=== PATIENT | male | born 1950 ===

== ENCOUNTER 2018-07-09 07:52 | Observation (INO) | payer OTHER ==
[2018-07-09] MEDS ORDERED: GABAPENTIN 300 MG CAP PO ONE (08:09)
[2018-07-09] MEDS ORDERED: ACETAMINOPHEN 500 MG TAB PO ONE (08:09)
[2018-07-09] MEDS ORDERED: ceFAZolin 2 GM/DEXTROSE 100 ML IV ONE (08:09)
[2018-07-09] MEDS ORDERED: LR 1,000 ML IV ONE (08:17)
[2018-07-09] MEDS ORDERED: EPINEPHrine 1 MG/ML INJ ONE (08:51)
[2018-07-09] MEDS ORDERED: CHLORHEXIDINE GLUC HIBICLENS 118 ML BTL TP ONE (08:51)
[2018-07-09] MEDS ORDERED: BUPIVACAINE 0.25% 30 ML SDV ONE (08:51)
[2018-07-09] MEDS ORDERED: THROMBIN (BOVINE) 5,000 UNIT VIAL TP ONE (08:51)
[2018-07-09] MEDS ORDERED: BACITRACIN 50,000 UNITS/10 ML SYR IRR ONE (08:52)
[2018-07-09] MEDS ORDERED: fentaNYL 100 MCG/2 ML INJ ONE ×4 (08:55→15:02)
[2018-07-09] MEDS ORDERED: fentaNYL 100 MCG/2 ML INJ IVP ONE (09:00)
[2018-07-09] MEDS ORDERED: ACETAMINOPHEN 325 MG TAB PO ONE (09:45)
[2018-07-09] MEDS ORDERED: GABAPENTIN 400 MG CAP PO ONE (09:45)
--- NOTE | 2018-07-09 10:44 | PDHPUP ---
History & Physical Update H&P update statement: This history and physical update is based on an assessment of the patient which was completed after admission or registration (within 24 hours), but prior to the surgery/procedure. H&P update: changes noted (worsened right buttock and leg pain )
--- NOTE | 2018-07-09 11:00 | PDANEPAE ---
ANE Past Medical History - Cardiovascular History Hx Hypertension: Yes Hx Arrhythmias: No Hx Chest Pain: No Hx Coronary Artery / Peripheral Vascular Disease: No Hx CHF / Valvular Disease: No Hx Palpitations: No - Pulmonary History Hx COPD: No Hx Asthma/Reactive Airway Disease: No Hx Recent Upper Respiratory Infection: No Hx Oxygen in Use at Home: No Hx Sleep Apnea: No Sleep Apnea Screening Result - Last Documented: Positive Pulmonary History Comment: SHARIFA Triggers only. seasonal allergies - Neurologic History Hx Cerebrovascular Accident: No Hx Seizures: No Hx Dementia: No Neurologic History Comment: right LE neuropathy. hx left tibial nerve paralysis resolved (r/t pneumo vaccine) - Endocrine History Hx Diabetes: No - Renal History Hx Renal Disorders: No - Liver History Hx Hepatic Disorders: No - Neurological & Psychiatric Hx Hx Neurological and Psychiatric Disorders: No - Cancer History Hx Cancer: No - Congenital Disorder History Hx Congenital Disorders: No - GI History Hx Gastrointestinal Disorders: No - Other Health History Other Health History: tinnitus - mild hearing loss right ear. allergic rhinitis. bruises easily. porokeratosis of the skin - Chronic Pain History Chronic Pain: Yes (back, right leg) - Surgical History Prior Surgeries: lumbar epidurals X2 2018. vasectomy & reversal. radal kerotatomy right eye. T&A. colonoscopies ANE Review of Systems Review of Systems: - Exercise capacity METS (RN): 4 METS ANE Patient History - Allergies Allergies/Adverse Reactions: pneumococcal vaccine [From Pneumovax 23] Allergy (Verified 06/30/18 11:03) paralysis of left tibial nerve - Home Medications Home Medications: Cetirizine [ZyrTEC 10 mg (*)] 10 mg PO DAILY 06/23/18 [Last Taken Unknown] Chlorthalidone [Chlorthalidone 25 mg (*)] 50 mg PO DAILY PRN 06/23/18 [Last Taken Unknown] Gabapentin [Neurontin 100 MG (*)] 100 mg PO TID 06/23/18 [Last Taken 07/09/18] HYDROcodone/APAP 10325 [[place] 10/325 (*)] 1 tab PO QID PRN 06/23/18 [Last Taken Unknown] amLODIPine BESYLATE [Norvasc 10 mg (*)] 10 mg PO DAILY 06/23/18 [Last Taken 01/21] Oxycodone HCl 07/09/18 [Last Taken 10/04/18] - NPO status NPO Since - Liquids (Date): 07/09/18 NPO Since - Liquids (Time): 06:00 NPO Since - Solids (Date): 07/08/18 NPO Since - Solids (Time): 18:00 - Smoking Hx Smoking Status: Never smoked - Family Anes Hx Family Hx Anesthesia Complications: none ANE Labs/Vital Signs - Vital Signs Blood Pressure: 131/91 Heart Rate: 64 Respiratory Rate: 16 O2 Sat (%): 98 Height: 180.34 cm Weight: 86.183 kg ANE Physical Exam - Airway Mallampati Score: Class 2 - ASA Status ASA Status: II ANE Anesthesia Plan Anesthesia Plan: general endotracheal anesthesia
[2018-07-09] MEDS ORDERED: MIDAZOLAM 2 MG/2 ML VIAL ONE (11:09)
[2018-07-09] MEDS ORDERED: ROCURONIUM 50 MG/5 ML VIAL ONE (11:10)
[2018-07-09] MEDS ORDERED: PROPOFOL/EMULSION 500 MG/50 ML BOTTLE IV ONE ×2 (11:10→12:43)
[2018-07-09] MEDS ORDERED: ONDANSETRON 4 MG/2 ML VIAL ONE (11:10)
[2018-07-09] MEDS ORDERED: METOCLOPRAMIDE 10 MG/2 ML VIAL ONE (11:10)
[2018-07-09] MEDS ORDERED: PROPOFOL 200 MG/20 ML VIAL ONE (11:10)
[2018-07-09] MEDS ORDERED: LR 500 ML IV PRN (13:55)
[2018-07-09] MEDS ORDERED: NALOXONE HCL 0.4 MG/ML INJ IVP PRN (13:55)
[2018-07-09] MEDS ORDERED: PHENYLEPHRINE HCL 100 MCG/ML SYR IVP PRN (13:55)
[2018-07-09] MEDS ORDERED: PROMETHAZINE HCL 25 MG/ML INJ IVP PRN (13:55)
--- NOTE | 2018-07-09 13:56 | POSTANESTH ---
Post Anesthetic Evaluation Cardiovascular Status: Similar to Pre-Op Cond Respiratory Status: Normal, Stable Level of Consciousness/Mental Status: Can Participate in Eval Pain Control: Adequate, Prn Tx Ordered Nausea/Vomiting Control: Adequate, Prn Tx Ordered Complications Possibly Related to Anesthesia: None Noted
[2018-07-09] MEDS ORDERED: ONDANSETRON DISINTEGRATING 4 MG TAB PO PRN (14:01)
[2018-07-09] MEDS ORDERED: LACTULOSE 20 GM/30 ML UDCUP PO PRN (14:01)
[2018-07-09] MEDS ORDERED: BISACODYL 10 MG SUPP PR PRN (14:01)
[2018-07-09] MEDS ORDERED: ONDANSETRON 4 MG/2 ML VIAL IVP PRN (14:01)
[2018-07-09] MEDS ORDERED: METHOCARBAMOL 750 MG TAB PO PRN (14:01)
[2018-07-09] MEDS ORDERED: MAGNESIUM HYDROXIDE 30 ML UDCUP PO PRN (14:01)
[2018-07-09] MEDS ORDERED: oxyCODONE IR 5 MG TAB PO PRN (14:01)
[2018-07-09] MEDS ORDERED: diphenhydrAMINE 25 MG CAP PO PRN (14:01)
--- NOTE | 2018-07-09 14:01 | POSTOPPROG ---
Post Op Note Date of Operation: 07/09/18 Surgeon: Jamie Vargas Communication Instructor: Soy Reis PAC Anesthesiologist: Jonatan Ballard MD Anesthesia: GET(General Endotracheal) Pre-op Diagnosis: L3-S1 stenosis Post-op Diagnosis: same Indication: right leg pain Procedure: L3-S1 microdecompression Findings: stenosis Inf/Abcess present in the surg proc area at time of surgery?: No EBL: 50-100 Complications: None Drains: Morro Fry (to bulb suction) Specimen(s): none
--- NOTE | 2018-07-09 14:03 | GOP ---
DATE OF OPERATION: 07/09/2018 SURGEON: Jamie Vargas MD NEUROSURGEON: Jamie Vargas. TRUCKLOAD CHECKER: Soy Reis. ANESTHESIA: General endotracheal. PREOPERATIVE DIAGNOSIS: Severe multilevel lumbar spinal stenosis with intractable right lower extrem ity radiculopathy. Failed conservative care. POSTOPERATIVE DIAGNOSIS: Severe multilevel lumbar spinal stenosis with intractable right lower extre mity radiculopathy. Failed conservative care. PROCEDURE PERFORMED: Minimally invasive right-sided L3-L4, L4-L5, and L5-S1 posterior hemilaminectom y, medial facetectomy, foraminotomies, and central canal decompression. Use of intraoperative micros copy and fluoroscopy. FINDINGS: ESTIMATED BLOOD LOSS: 50 cc. INDICATIONS: The patient is a 68-year-old man with intractable right lower extremity radicular pain secondary to multilevel lumbar spinal stenosis, lateral recess, and foraminal impingement. He has fa iled extensive conservative care and presents now for surgical decompression through a mini open appr [facility]. DESCRIPTION OF PROCEDURE: After informed consent was obtained, the patient was taken to the operatin g room and placed in the prone position on the Jakob frame. The lumbosacral area was prepped and dr aped in sterile fashion. After fluoroscopic localization of the correct level, the subcutaneous and intramuscular tissues were infiltrated with local anesthesia. A midline linear incision was then cre ated over the L4-L5 spinous processes. This was carried down the fascial layer which was incised usi ng monopolar electrocautery and carried down to the subperiosteal plane along the spinous processes a nd lamina on the right. Intraoperative fluoroscopy was, again, used to verify the correct levels. F ollowing this, the dissection was carried rostrally and caudally by using the [facility] retractor and keeping the incision small and dissecting in a subperiosteal fashion at L3-L4, L4-L5, and L5-S1. Fo llowing re-verification of the correct levels, the microscope was brought in and the minimally invasi ve retractor inserted. The posterior hemilaminectomy defects were then created at the L3-L4, L4-L5, and L5-S1 levels on the right. Medial facetectomies were necessary in order to adequately decompress the lateral recess. Foraminotomies were performed at all levels as well along with removal of the l igamentum flavum. Following adequate decompression, meticulous hemostasis was achieved. The wound w as copiously irrigated with antibiotic irrigation and drain were placed. The subcutaneous and intram uscular tissues were re-infiltrated with local anesthesia, and the wound was closed in a layered fash ion using interrupted Vicryl sutures followed by Steri-Strips on the skin. COMPLICATIONS: None. DISPOSITION: The patient is currently in the process of being repositioned for extubation. /[id number]/MODL
--- NOTE | 2018-07-09 14:11 | SOAPPROG ---
SOAP Progress Note Assessment/Plan: POST OP CHECK: Assessment: Doing well s/p L3-S1 Microdecompression Plan: CPM in PACU transfer to floor per protocol Keep EDSON to bulb suction 07/09/18 14:07 Objective: Vital Signs Temp Pulse Resp BP Pulse Ox 36.3 C 64 16 131/91 H 98 07/09/18 08:34 07/09/18 10:59 07/09/18 10:59 07/09/18 10:59 07/09/18 10:59 Vitals: BP: 114/72 HR 73 O2: 100% FM Neuro: FLORES spontaneously x 4 Follows commands PERRLA, EOMI ICD10 Worksheet Patient Problems: Problems Problem Status Onset Stenosis, spinal, lumbar Acute - ICD10 Problem Qualifiers (1) Stenosis, spinal, lumbar
[2018-07-09] MEDS ORDERED: CHLORTHALIDONE 25 MG TAB PO PRN (14:31)
[2018-07-09] MEDS: fentaNYL 100 MCG/2 ML INJ IVP PRN ×2 (15:07→15:11)
[2018-07-09] MEDS: POLYETHYLENE GLYCOL 3350 17 GM PKT PO SCH ×2 (17:51→21:16)
[2018-07-09] MEDS: OXYCODONE HCL PO PRN (19:43)
[2018-07-09] MEDS: ACETAMINOPHEN PO PRN (19:43)
[2018-07-09] MEDS: METHOCARBAMOL 750 MG TAB PO PRN (19:44)
[2018-07-09] MEDS: ceFAZolin 2 GM/DEXTROSE 100 ML IV SCH (21:00)
[2018-07-09] MEDS: SENNOSIDES/DOCUSATE SODIUM TAB PO SCH (21:16)
[2018-07-09] MEDS: ACETAMINOPHEN 500 MG TAB PO SCH (21:16)
[2018-07-09] MEDS: FAMOTIDINE 20 MG TAB PO SCH (21:16)
[2018-07-09] MEDS: GABAPENTIN 100 MG CAP PO SCH (21:16)
[2018-07-10] MEDS: ceFAZolin 2 GM/DEXTROSE 100 ML IV SCH (04:26)
[2018-07-10] MEDS: ACETAMINOPHEN PO PRN ×2 (04:39→11:12)
[2018-07-10] MEDS: OXYCODONE HCL PO PRN ×2 (04:39→11:12)
[2018-07-10 04:43] LABS: PLATELET COUNT 225 10^3/uL (150-400)
[2018-07-10] MEDS: GABAPENTIN 100 MG CAP PO SCH ×2 (05:06→13:13)
[2018-07-10] MEDS: ACETAMINOPHEN 500 MG TAB PO SCH (05:06)
--- NOTE | 2018-07-10 08:23 | NEUSURGPN ---
Assessment/Plan: Assessment: Doing well s/p L3-S1 Microdecompression POD#1 Plan: Pain management PT/OT Keep EDSON to bulb suction - will send home with drain and remove tomorrow Encourage OOB Plan for home later today as long as doing well D/w Dr Davis Subjective: Pt resting in bed, states R leg pain improved Objective: AAOx3 NAD VSS MAEx4 Motor 5/5 BLE JPx1 with serosanguineous dc in bulb Urinary Catheter in Place: No - Physician Discussed Patient with Dr.: Sam Patient Seen by : Sam Neurosurgery Physical Exam - Vitals, I&O, Labs I and O 07/09/18 07/10/18 07/11/18 05:59 05:59 05:59 Intake Total 1450 Output Total 150 45 Balance 1300 -45 Weight 86.183 kg Intake: Oral (ml) 500 IV Intake (ml) 950 Output: Estimated Blood Loss (ml) 100 EDSON Drain Output (ml) 50 45 Right Posterior Back 50 45 Morro Fry Other: Intake Quantity Yes Sufficient Output Comment Toilet Pt states there was moderate amount of urine Number of Voids Toilet 1 Vital Signs Temp Pulse Resp BP Pulse Ox 36.6 C 66 16 105/72 97 07/10/18 08:00 07/10/18 08:00 07/10/18 08:00 07/10/18 08:00 07/10/18 08:00 Laboratory Results 07/10/18 04:25 07/10/18 04:25 ICD10 Worksheet Patient Problems: Problems Problem Status Onset Stenosis, spinal, lumbar Acute
[2018-07-10] MEDS ORDERED: ENOXAPARIN 40 MG/0.4 ML SYR SC SCH (09:00)
[2018-07-10] MEDS ORDERED: CETIRIZINE 10 MG TAB PO SCH (09:00)
[2018-07-10] MEDS: POLYETHYLENE GLYCOL 3350 17 GM PKT PO SCH (09:02)
[2018-07-10] MEDS: FAMOTIDINE 20 MG TAB PO SCH (09:03)
[2018-07-10] MEDS: METHOCARBAMOL 750 MG TAB PO PRN (09:03)
[2018-07-10] MEDS: SENNOSIDES/DOCUSATE SODIUM TAB PO SCH (09:03)
--- NOTE | 2018-07-10 09:39 | ASMTCMCOM ---
CM Note CM Note Notes: Patient is POD #1 L3-S1 microdecompression. He is doing well, and pending PT/OT evals today, may discharge this afternoon. Patient lives with his in [place]. They will be staying in a motel in [place] for a few days before driving home. Patient has a f/u appt with Dr Davis in 2.5 weeks. Date Signed: 07/10/2018 09:38 AM Electronically Signed By:Odalis Cervantes RN
--- NOTE | 2018-07-10 10:41 | ASMTCMCOM ---
CM Note CM Note Notes: Patient had set up homecare services with [facility] pre-operatively. They will see him while he's here in [place] and then follow to [place]. Date Signed: 07/10/2018 10:40 AM Electronically Signed By:Odalis Ceravntes RN
--- NOTE | 2018-07-10 11:16 | PDIAF ---
- Diagnosis Code Status: Full Code - Medication Management Discharge Medications: Medications to Continue on Transfer Cetirizine [ZyrTEC 10 mg (*)] 10 mg PO DAILY 06/23/18 [Last Taken Unknown] Chlorthalidone [Chlorthalidone 25 mg (*)] 50 mg PO DAILY PRN 06/23/18 [Last Taken Unknown] Gabapentin [Neurontin 100 MG (*)] 100 mg PO TID 06/23/18 [Last Taken 07/09/18] HYDROcodone/APAP 10325 [[place] 10/325 (*)] 1 tab PO QID PRN 06/23/18 [Last Taken Unknown] amLODIPine BESYLATE [Norvasc 10 mg (*)] 10 mg PO DAILY 06/23/18 [Last Taken 01/21] oxyCODONE HCL/ACETAMINOPHEN [Percocet 10-325 mg Tablet] 1 each PO Q6H PRN [Last Taken 07/09/18] Cephalexin [Keflex (*)] 500 mg PO Q6H #8 cap 07/10/18 [Last Taken Unknown] Methocarbamol [Robaxin 750 mg (*)] 750 mg PO QID PRN #60 tab 07/10/18 [Last Taken Unknown] Discharge Medications: Refer to the Discharge Home Medication list for PRN reason. - Orders Services needed: Home Care, Physical Therapy, Occupational Therapy Home Care Face to Face: I certify that this patient was under my care and that I had the required [id number] encounter meeting the encounter requirements on the discharge day. My findings support the fact that the patient is homebound as defined in Home Care Face to Face Continued: CMS Chapter 7 Medicare Benefits Manual 30.1.1 , The condition of the patient is such that there exists a normal inability to leave home and consequently, leaving home would require a considerable and taxing effort. Diet Recommendation: no restrictions on diet Diet Texture: Regular Texture Diet Additional Instructions: No bending/lifting/twisting, 5-10 lb weight limit Keep incision clean and dry Remove EDSON drain and change dressing on 07/11/18 Follow up in 2-3 weeks Call office with any issues @ [phone] - Follow Up Care Current Providers and Referrals: [facility] [Other] Jamie Vargas MD [Medical Doctor] -
[2018-07-10 12:03] VITALS: BP 104/73
--- NOTE | 2018-07-10 14:10 | ASDISCHSUM ---
Discharge Information Plan Status:Home with Home Health Medically Cleared to Leave: Discharge Date:07/10/2018 01:40 PM CM D/C Disposition:Home Health Service ADT D/C Disposition:[id number] Projected Discharge Date:07/10/2018 11:00 AM Transportation at D/C: Discharge Delay Reason: Follow-Up Date:07/10/2018 11:00 AM Discharge Slot: Final Diagnosis: Placement Information Referral Type:*Home Health Care Services Referral ID:[id number] Provider Name:[facility] ([facility]) Address 1:[address] [address] Address 2: City:[place] Selection Factors: State:[place] Patient Contact Information Contact Name:LELO Relationship: Address:[address] [place] Work Phone: City:[place] Alternate Phone: State/Zip Code:[place] [address] Email: Financial Information Financial Class:Medicare Primary Plan Desc:MEDICARE OUTPATIENT Primary Plan Number:[id number] Secondary Plan Desc[facility] Secondary Plan Number:[id number] Assessment Information LACE LACE Length of stay for Answers: 2 days current admission Acuity / Level of Answers: No Care: Did the patient have an inpatient admission? # of Emergency department Answers: 0 visits in the last 6 months Score: 2 Date Signed: 07/10/2018 02:08 PM Electronically Signed By:BELEM Hernandez PARDEEP DAVID Progress Note CM Juan CM Note Notes: Patient is POD #1 L3-S1 microdecompression. He is doing well, and pending PT/OT evals today, may discharge this afternoon. Patient lives with his in [place]. They will be staying in a motel in [place] for a few days before driving home. Patient has a f/u appt with Dr Davis in 2.5 weeks. Date Signed: 07/10/2018 09:38 AM Electronically Signed By:Odalis Cervantes RN [facility] CM Progress Note CM Note CM Note Notes: Patient had set up homecare services with [facility] pre-operatively. They will see him while he's here in [place] and then follow to [place]. Date Signed: 07/10/2018 10:40 AM Electronically Signed By:Odalis Cervantes RN Intervention Information Intervention Type:*SHINE-Signed Date of Service:07/10/2018 01:11 PM Patient Type:Observation Staff Member:Choco Dumas Hours: Discipline: Severity: Comment:
== END 2018-07-10 13:40 | disposition home health service (06) ==
LOC: F3N 07:52
PROVIDERS: ADMIT Neurological Surgery; ATTEND Neurological Surgery
PROC: 4A10X4G Monitoring of Central Nervous Electrical Activity, Intraoperative, External Approach (ICD-10-PCS; principal; 2018-07-09 09:45)
PROC: 00NY0ZZ Release Lumbar Spinal Cord, Open Approach (ICD-10-PCS; principal; 2018-07-09 09:45)
PROC: 8E0WXBG Computer Assisted Procedure of Trunk Region, With Computerized Tomography (ICD-10-PCS; principal; 2018-07-09 09:45)
PROC: BR191ZZ Fluoroscopy of Lumbar Spine using Low Osmolar Contrast (ICD-10-PCS; principal; 2018-07-09 09:45)
DX: M48.061 Spinal stenosis, lumbar region without neurogenic claudication (principal); M48.07 Spinal stenosis, lumbosacral region; M54.16 Radiculopathy, lumbar region; M51.36 Other intervertebral disc degeneration, lumbar region; I10 Essential (primary) hypertension
CPT/HCPCS: 63047; 63048; 76001; 97116; 97161; 97165; G8978; G8979; G8987; G8988; G8989; J0171; J0690; J2250; J2405; J2704; J2765; J3010; J1650